=== PATIENT | female | born 1960 | race Native Hawaiian/Other Pacific Islander ===

== ENCOUNTER 2020-12-14 11:47 | Emergency (ER) | payer OTHER ==
[~2020-12-14] VITALS: Ht 152.4 cm; Wt 46.4 kg
[~2020-12-14 11:47] MED LIST: CYCL10 PO; DIAZ5TAB5 PO; DIPH25CA85 PO; LEVO50TA4 PO; NAPR-1025 PO; SERT-158 PO
[2020-12-14] MEDS ORDERED: CloNIDine HCL 0.1 MG TABLET PO ONE (15:30)
[2020-12-14 16:10] VITALS: BP 152/80
== END 2020-12-14 17:10 | disposition home or self-care (01) ==
LOC: EMS 11:47
DX: I10 Essential (primary) hypertension (principal); F41.9 Anxiety disorder, unspecified; F17.210 Nicotine dependence, cigarettes, uncomplicated; F32.9 Major depressive disorder, single episode, unspecified
CPT/HCPCS: 99283

== ENCOUNTER 2024-06-13 13:37 | Emergency (ER) | payer OTHER ==
[~2024-06-13] VITALS: Ht 152.4 cm; Wt 50.0 kg
[~2024-06-13 13:37] MED LIST changes: +CYCL-448 PO; -CYCL10 PO; +DIAZ-328 PO; -DIAZ5TAB5 PO
[2024-06-13 13:52] VITALS: TEMP 98.3
[2024-06-13 14:39] LABS: COVID AG,FIA SOURCE NASAL SWAB
[2024-06-13 14:58] LABS: INFLUENZA TYPE A NEGATIVE FOR TYPE A (NEGATIVE); INFLUENZA TYPE B NEGATIVE FOR TYPE B (NEGATIVE); SARS-COV2 (COVID) ANTIGEN,FIA Negative (Negative)
[2024-06-13 16:52] VITALS: BP 161/87; PULSE 86; RESP 16; O2SAT 97
[2024-06-13] MEDS ORDERED: GUAIFDM PO (17:29)
[2024-06-13] MEDS ORDERED: ACET-66 PO (17:29)
[2024-06-13] MEDS ORDERED: AZIT250T9 PO (17:29)
[2024-06-13] MEDS ORDERED: ALBU18HF12 IH (17:29)
== END 2024-06-13 17:45 | disposition home or self-care (01) ==
LOC: EMS 13:37
DX: J44.1 Chronic obstructive pulmonary disease with (acute) exacerbation (principal); J98.4 Other disorders of lung; R11.10 Vomiting, unspecified; I10 Essential (primary) hypertension; F32.A Depression, unspecified; F41.9 Anxiety disorder, unspecified; F17.210 Nicotine dependence, cigarettes, uncomplicated; Z90.89 Acquired absence of other organs; Z79.899 Other long term (current) drug therapy; Z20.822 Contact with and (suspected) exposure to COVID-19
CPT/HCPCS: 87804; 99283